=== PATIENT | female | born 1930 | race Caucasian/White ===

== ENCOUNTER 2019-06-18 11:52 | Emergency (ER) | payer MEDICARE ==
[~2019-06-18] VITALS: Ht 167.6 cm; Wt 49.9 kg
[2019-06-18] MEDS ORDERED: IV NORMAL SALINE 500 ML BAG IV ONE (12:15)
[2019-06-18 12:33] LABS: BASOPHILS % (AUTO) 0.2 % (0.0-2.0); HEMATOCRIT 39.9 % (31.2-41.9); HEMOGLOBIN 13.7 g/dL (10.9-14.3); LYMPHOCYTES # (AUTO) 0.3 K/uL (20.0-40.0); LYMPHOCYTES % (AUTO) 2.1 % (20.5-51.5); MEAN CORPUSCULAR HGB CONC 34 g/dL (32.3-35.6); MEAN CORPUSCULAR VOLUME 90.5 fL (75.5-95.3); MONOCYTES # (AUTO) 1.2 K/uL (2.0-10.0); NEUTROPHILS # (AUTO) 15.1 K/uL (1.8-8.9); NEUTROPHILS % (AUTO) 90.7 % (38.5-71.5); PLATELET COUNT (AUTO) 260 K/uL (179-408); WHITE BLOOD COUNT (AUTO) 16.6 K/uL (3.8-11.8)
[2019-06-18 12:43] LABS: CARBON DIOXIDE 31 mmol/L (21-32); CHLORIDE 100 mmol/L (98-107); CREATININE 1.5 mg/dL (0.6-1.3); GLUCOSE 137 mg/dL (74-106); POTASSIUM 3.1 mmol/L (3.5-5.1); UREA NITROGEN, BLOOD 43 mg/dL (7-18)
[2019-06-18 12:45] LABS: *BILIRUBIN,URIN NEGATIVE (NEGATIVE); *BLOOD, URINE 2+ (NEGATIVE); *CLARITY,URINE CLOUDY (CLEAR); *COLOR,URINE YELLOW (YELLOW); *KETONES,URINE NEGATIVE (NEGATIVE); *UROBILINOGEN,URINE 0.2 E.U./dl (NORMAL); LEUKOCYTE ESTERASE ,URINE 2+ (NEGATIVE); NITRITE, URINE NEGATIVE (NEGATIVE); UGLUCOSE NEGATIVE (NEGATIVE)
[2019-06-18 12:49] LABS: ACETAMINOPHEN < 2.0 ug/mL (10-30); ALANINE AMINOTRANSFERASE 46 U/L (14-59); ALKALINE PHOSPHATASE 125 U/L (50-136); ASPARTATE AMINOTRANSFERASE 21 U/L (15-37); BILIRUBIN,DIRECT 0.1 mg/dL (0.0-0.2); BILIRUBIN,TOTAL 0.3 mg/dL (0.2-1.0); LIPASE 228 U/L (73-393); TOTAL PROTEIN, SERUM 7.4 g/dL (6.4-8.2)
[2019-06-18 12:52] LABS: SQUAMOUS EPITHELIAL CELL,UR NONE SEEN /HPF (NONE SEEN)
[2019-06-18 12:53] LABS: BACTERIA,URINE MANY /HPF (NONE SEEN); WBC,URINE TNTC /HPF (0-3)
[2019-06-18 12:56] LABS: ETHANOL < 3 MG/DL (0-0)
[2019-06-18 13:00] LABS: *AMPHETAMINE, URINE NEGATIVE (NEGATIVE); *BARBITURATE, URINE NEGATIVE (NEGATIVE); *CANNABINOID, URINE NEGATIVE (NEGATIVE); *COCCAINE, URINE NEGATIVE (NEGATIVE); *OPIATE, URINE NEGATIVE (NEGATIVE); *PHENCYCLIDINE SCREEN,URINE NEGATIVE (NEGATIVE)
[2019-06-18] MEDS ORDERED: IV 0.9% SODIUM CHLORID+ 20 KCL 1,000 ML IV ONE (13:12)
[2019-06-18] MEDS ORDERED: CEFTRIAXONE 1 G in IV DEXTROSE 5% 50 ML IV ONE (13:15)
[2019-06-18] MEDS ORDERED: CEFTRIAXONE /D5W 50ML IVPB **ER PYXIS IV ONE (13:21)
[2019-06-18] MEDS ORDERED: POTASSIUM CHLORIDE 20 MEQ POWDER PACKET ONE (13:24)
[2019-06-18] MEDS ORDERED: POTASSIUM CHLORIDE 20 MEQ POWDER PACKET PO ONE (13:45)
--- NOTE | 2019-06-18 14:52 | NUR ---
Patient discharged to home in stable conditon. Written and verbal after care instructions given. Patient verbalizes understanding of instructions. all belongings w/ pt. pt assisted out to private vehicle in w/c. pt d/c under care of son. 20g iv access in RAC removed prior to d/c - inner cannula intact.
[2019-06-18 14:53] VITALS: BP 110/52
== END 2019-06-18 14:53 | disposition home or self-care (01) ==
LOC: ER 11:52
DX: N39.0 Urinary tract infection, site not specified (principal); R79.89 Other specified abnormal findings of blood chemistry; N28.9 Disorder of kidney and ureter, unspecified
CPT/HCPCS: 36415; 71045; 80048; 80076; 80307; 81000; 81001; 83690; 85025; 87077; 87086; 87186; 93005; 99285; G0480 ×2; G0481; J0696; A4663; J7040

== ENCOUNTER 2019-09-06 19:05 | Emergency (ER) | payer MEDICARE, BC ==
[~2019-09-06] VITALS: Ht 157.5 cm; Wt 40.8 kg
[~2019-09-06 19:05] MED LIST: BIOT1CAP3 PO; CHOL40002 PO; CYAN-51 PO; DIVA-78 PO; DONE10TA44 PO; HYDR12.55 PO; MIRT15TA7 PO
--- NOTE | 2019-09-06 19:18 | NUR ---
Patient BIB [facility] for syncopal episode at home. A/Ox2. Speech is clear, speaks in complete sentences no acute neuro deficits. PaPatient has intermittent confusion at baseline due to hx. Respiratory even and unlabored, no cough, sob or respiratory compromise. All pulses palpable, denies any chest pain. Denies any n/v/d. Patient in bed at lowest position, sr upx2, call light within reach. Fall precautions implemented per protocol.
[2019-09-06] MEDS ORDERED: IV NORMAL SALINE 1000 ML BAG IV ONE (19:30)
[2019-09-06] MEDS ORDERED: ESCI10TA PO (19:45)
--- NOTE | 2019-09-06 19:50 | NUR ---
XRAY and lab at bedside
[2019-09-06 20:12] LABS: BASOPHILS # (AUTO) 0.1 K/uL (0.0-8.0); BASOPHILS % (AUTO) 0.7 % (0.0-2.0); EOSINOPHILS # (AUTO) 0.1 K/uL (0.0-0.7); EOSINOPHILS % (AUTO) 0.7 % (0.0-7.0); HEMATOCRIT 34.9 % (31.2-41.9); HEMOGLOBIN 11.9 g/dL (10.9-14.3); LYMPHOCYTES # (AUTO) 2.5 K/uL (20.0-40.0); LYMPHOCYTES % (AUTO) 24.4 % (20.5-51.5); MEAN CORPUSCULAR HEMOGLOBIN 30.9 uug (24.7-32.8); MEAN CORPUSCULAR HGB CONC 34 g/dL (32.3-35.6); MEAN CORPUSCULAR VOLUME 90.9 fL (75.5-95.3); MONOCYTES # (AUTO) 0.7 K/uL (2.0-10.0); MONOCYTES % (AUTO) 7.1 % (0.0-11.0); NEUTROPHILS # (AUTO) 6.7 K/uL (1.8-8.9); NEUTROPHILS % (AUTO) 67.1 % (38.5-71.5); PLATELET COUNT (AUTO) 269 K/uL (179-408); RED BLOOD CELL COUNT(AUTO) 3.84 MIL/uL (3.63-4.92); WHITE BLOOD COUNT (AUTO) 10.1 K/uL (3.8-11.8)
[2019-09-06 20:13] LABS: *BILIRUBIN,URIN NEGATIVE (NEGATIVE); *CLARITY,URINE CLOUDY (CLEAR); *COLOR,URINE YELLOW (YELLOW); *KETONES,URINE NEGATIVE (NEGATIVE); *UROBILINOGEN,URINE 0.2 E.U./dl (NORMAL); LEUKOCYTE ESTERASE ,URINE 1+ (NEGATIVE); NITRITE, URINE POSITIVE (NEGATIVE); UGLUCOSE NEGATIVE (NEGATIVE)
[2019-09-06 20:17] LABS: CREATININE 1.1 mg/dL (0.6-1.3); POTASSIUM 3.2 mmol/L (3.5-5.1)
[2019-09-06 20:17] LABS: *BLOOD, URINE TRACE (NEGATIVE)
[2019-09-06 20:18] LABS: BACTERIA,URINE MANY /HPF (NONE SEEN); MUCUS,URINE MODERATE /LPF (0-FEW); SQUAMOUS EPITHELIAL CELL,UR FEW /HPF (NONE SEEN); WBC,URINE 80-100 /HPF (0-3)
[2019-09-06] MEDS ORDERED: NITROFURANTOIN/NITROFURAN MAC 100 MG CAPSULE PO ONE (20:30)
[2019-09-06] MEDS ORDERED: CEFTRIAXONE 1 G in IV DEXTROSE 5% 50 ML IV ONE (20:30)
[2019-09-06 20:34] LABS: BILIRUBIN,DIRECT 0.1 mg/dL (0.0-0.2); BILIRUBIN,TOTAL 0.3 mg/dL (0.2-1.0); TOTAL PROTEIN, SERUM 6.4 g/dL (6.4-8.2)
[2019-09-06] MEDS ORDERED: CEFTRIAXONE /D5W 50ML IVPB **ER PYXIS IV ONE (20:35)
[2019-09-06] MEDS ORDERED: NITROFURANTOIN/NITROFURAN MAC 100 MG CAPSULE ONE (20:35)
[2019-09-06] MEDS ORDERED: POTASSIUM CHLORIDE 20 MEQ TAB.PRT.SR PO ONE (20:45)
--- NOTE | 2019-09-06 20:47 | NUR ---
Patient's daughter who is the DPOA wishes that the patient not be admitted to the hospital and discharged home. Patient will be leaving [facility] spoke to caregiver and patient.
[2019-09-06] MEDS ORDERED: POTASSIUM CHLORIDE 20 MEQ TAB.PRT.SR ONE (20:55)
--- NOTE | 2019-09-06 21:13 | NUR ---
Patient does not wish to proceed with medical care recommended by Dr. Fragoso. Patient given information related to possible complications, up to and including , which could occur as a result of leaving the hospital at this time. Patient verbalizes understanding of risks involved due to leaving against medical advice. Patient has signed AMA form. Patient wheeled out via w/c
[2019-09-06 21:14] VITALS: BP 131/73
== END 2019-09-06 21:15 | disposition left against medical advice (07) ==
LOC: ER 19:13
DX: R55 Syncope and collapse (principal); E87.6 Hypokalemia; R00.1 Bradycardia, unspecified; N30.90 Cystitis, unspecified without hematuria; G30.9 Alzheimer's disease, unspecified; F02.80 Dementia in other diseases classified elsewhere, unspecified severity, without behavioral disturbance, psychotic disturbance, mood disturbance, and anxiety; I10 Essential (primary) hypertension; Z87.440 Personal history of urinary (tract) infections; M19.041 Primary osteoarthritis, right hand
CPT/HCPCS: 36415; 51702; 71045; 73140; 80048; 80076; 81001; 83605; 83880; 84484; 85025; 85730; 87040 ×2; 87077; 87086; 87186; 93005; 96365; 99285; J0696; 70030-TC; A4663; C1758; J7030; J7040